=== PATIENT | female | born 1970 | race Hispanic/Latino ===

== ENCOUNTER → 2024-05-29 | Outpatient (CLI) | payer BC ==
[~2024-05-29] MED LIST: LEVO125T11 PO
== END | disposition home or self-care (01) ==
LOC: RAH 14:05
PROVIDERS: ATTEND Internal Medicine
DX: M50.123 Cervical disc disorder at C6-C7 level with radiculopathy (principal); M47.22 Other spondylosis with radiculopathy, cervical region; M48.02 Spinal stenosis, cervical region
CPT/HCPCS: 72141